=== PATIENT | female | born 1940 | race Caucasian/White ===

== ENCOUNTER 2016-08-11 16:51 | Inpatient (IN) ==
[2016-08-11] MEDS: *HR* Heparin 5,000 UNIT/ML VIAL SQ SCH (19:59)
[2016-08-12] MEDS: *HR* HYDROcodone/Acet 5/325 mg TABLET PO PRN ×3 (03:41→21:08)
[2016-08-12] MEDS: *HR* Heparin 5,000 UNIT/ML VIAL SQ SCH ×2 (06:21→17:51)
[2016-08-12] MEDS ORDERED: Aspirin 81 MG TAB.CHEW PO SCH (09:00)
[2016-08-12] MEDS ORDERED: Furosemide 40 MG TABLET PO SCH (09:00)
[2016-08-12] MEDS: Metoprolol XL (24 HR) Succ 50 MG TAB.ER.24H PO SCH (09:20)
[2016-08-12] MEDS: *HR* LORazepam 1 MG TABLET PO PRN (09:21)
[2016-08-12] MEDS: NIFEdipine XL (24 HR) 30 MG TAB.ER.24 PO SCH (09:21)
--- NOTE | 2016-08-12 11:46 | Internal Med History&Physical ---
Date of Encounter: 08/12/16 Time of Encounter: 11:10 Assessment and Plan (1) Hip fracture Current visit: No Status: Acute Status post hemiarthroplasty. Continue PT and OT intervention Qualifiers: Encounter type: initial encounter Fracture type: closed Laterality: right Qualified Code(s): S72.001A - Fracture of unspecified part of neck of right femur, initial encounter for closed fracture (2) Anemia Current visit: No Status: Chronic We will order anemia testing in a.m. Qualifiers: Anemia type: iron deficiency Iron deficiency anemia type: other iron deficiency Qualified Code(s): D50.8 - Other iron deficiency anemias (3) Hypertension Current visit: No Status: Chronic Continue clonidine, metoprolol, and nifedipine. We will hold Lasix, Cozaar and HCTZ to see if azotemia improves. Qualifiers: Hypertension type: essential hypertension Qualified Code(s): I10 - Essential (primary) hypertension (4) Chronic renal disease, stage 4, severely decreased glomerular filtration rate (GFR) between 15-29 mL/min/1.73 square meter Current visit: No Status: Chronic We will adjust medications as above and monitor renal indices. (5) Gout Current visit: Yes Status: Chronic We will check uric acid level in a.m. Qualifiers: Gout site: unspecified site Gout etiology: unspecified cause Chronicity: chronic Presence of tophus: without tophus Qualified Code(s): M1A.9XX0 - Chronic gout, unspecified, without tophus (tophi) Internal Medicine - H&P: HPI Chief complaint: Right hemiarthroplasty Admitted From: Hospital to Hospital Transfer Plans for Post Hospital Care: Home History of present illness: Ms. Caballero is a 75 year old female who was hospitalized at [facility] August 06 after sustaining a right hip fracture from a fall. She had right hemiarthroplasty done by . Her postop course was generally unremarkable and she was admitted to [facility] swing bed for rehabilitation therapy prior to returning home. Her orthopedic history is significant for previous right foot fracture surgery approximately 2009. She has DJD and gout. Past Med Surg Social Fam HX - Past Medical History Medical history: arthritis, GERD, hyperlipidemia, hypertension, renal disease Psychiatric history: anxiety - Past Surgical History Surgical History: angioplasty/stent, appendectomy, , hysterectomy, other - Social History Smoking Status: Light tobacco smoker Smokeless Tobacco Status: No Alcohol use: rarely Drug use: none - Family History Son Adopted: No Family Member Ethnicity: Non- Living Status: Still Living Hx Family Cardiac Disorders: Yes Hx Family Respiratory Disorders: No Hx Family Cancer: No Hx Family GI Disorders: No Hx Family Genitourinary Disorders: No Hx Family Endocrine Disorder: No Hx Family Musculoskeletal Disorders: No Hx Family Neuromuscular Disorders: No Hx Family Neurologic Disorders: No Hx Family HEENT Disorders: No Hx Family Autoimmune Disorders: No Hx Family Reproductive Disorders: No Hx Family Psychosocial Disorders: No Hx Family Medical Disorders: No Brother History Unknown: Yes Adopted: [place]: Mariano Living Status: Father Hx Family Cardiac Disorders: Yes (heart attack, open heart surgery) Internal Medicine - H&P: Meds Clopidogrel [Plavix] 75 mg PO DAILY 05/21/15 [History] Furosemide [Lasix] 40 mg PO DAILY 05/21/15 [History] LORazepam [Ativan] 1 mg PO TID PRN 05/21/15 [History] Losartan [Cozaar] 100 mg PO DAILY 05/21/15 [History] Metoprolol XL (24 HR) Succ [Toprol Xl] 100 mg PO DAILY 05/21/15 [History] Simvastatin [Zocor] 20 mg PO HS 05/21/15 [History] Potassium Chloride 20 meq PO DAILY #30 tab.er.prt 05/22/15 [Rx] Allopurinol [Zyloprim 100 MG] 100 mg PO DAILY 08/06/16 [History] Aspirin 81 mg PO DAILY 08/06/16 [History] CloNIDine HCl [Clonidine HCl] 0.3 mg PO TID 08/06/16 [History] HYDROcodone/Acet 5/325 mg [[place] 5-325 mg] 1 tab PO Q6H PRN 08/06/16 [History] Hydrochlorothiazide 25 mg PO DAILY 08/06/16 [History] NIFEdipine [Nifedipine ER] 60 mg PO DAILY 08/06/16 [History] Polyethylene Glycol 3350 [MiraLAX Powder Bulk 17.9 Oz] 17 gm PO DAILY PRN [History] Ferrous Sulfate 325 mg PO BIDWM #28 tablet 08/11/16 [Rx] Heparin 5,000 unit SQ Q12HR 35 Days 08/11/16 [Rx] Allergies No Known Allergies Allergy (Verified 05/16/15 11:05) All Systems PM: A 10-system review of systems was performed and is negative for pertinent findings except as documented above in the HPI. Review of systems: Gen.: She states her weight has been stable the past few months Cardiovascular: She has history of hypertension but denies SD heart failure angina DVT or pulmonary embolus Respiratory: She is a lifelong nonsmoker and has no known chronic lung disease GI: She denies disorders of her liver gallbladder or exocrine pancreas : She has chronic kidney disease but does not follow with a locker room manager. She was diagnosed approximately 2008. She had a left renal artery stent placed approximately November 2010 for renal artery stenosis. She denies other kidney or bladder disorders. Neurologic: She had 2 seizures during many years ago. She has had no recurrent seizures and denies large distribution strokes Endocrine: She has hyperlipidemia but denies diabetes or thyroid disease Hematology/oncology: She has history of anemia but denies internal malignancies or other blood disorders Psychiatric: She has occasional feelings of anxiety but denies significant depression or other mental health issues Musk skeletal: As per history of present illness - Constitutional Vitals: Temp Pulse Resp BP Pulse Ox 98.2 F 64 16 138/64 96 08/12/16 11:30 08/12/16 11:30 08/12/16 11:30 08/12/16 11:30 08/12/16 11:30 Exam: Gen.: She is a well-developed lean female who appears in no severe distress at present time HEENT: Head is atraumatic and normocephalic. Eyes: EOMI. There is no scleral icterus. Mouth: Mucosa is moist. Neck: Supple and nontender. There is no thyromegaly or adenopathy noted. Heart: Regular without murmurs gallops or ectopics. Lungs: No wheezes or crackles are heard. Abdomen: Soft and nontender. Exam is limited because she is in the seated position. Extremities: She has DJD changes of her hands. There is no cyanosis of her fingernails. There is no lower leg or dorsum of the foot edema Neurologic: Mental status: She is talkative and a good historian. Cranial nerves: Smile is symmetric. Forehead wrinkles bilaterally. Tongue protrudes midline. EOMI. Motor: There is no pronator drift. Cerebellar: Finger to nose is intact bilaterally. Skin: Warm and dry
[2016-08-12] MEDS ORDERED: *HR* Heparin 5,000 UNIT/ML VIAL SQ SCH (17:04)
[2016-08-13 05:37] LABS: Basophils # 0.1 K/mcL (0.0-0.2); Basophils % 0.6 %; Eosinophils # 0.3 K/mcL (0.0-0.6); Eosinophils % 3.6 %; Hematocrit 31.2 % (35.3-44.9); Hemoglobin 10.5 g/dL (11.5-15.4); Immature Granulocytes % 1.9 % (0-4); Lymphocytes # 1.1 K/mcL (0.6-4.6); Lymphocytes % 13.8 %; Mean Corpuscular HGB Conc 33.7 g/dL (31.6-35.5); Mean Corpuscular Hemoglobin 30.9 pg (28.0-33.3); Mean Corpuscular Volume 91.8 fL (83.0-100.0); Mean Platelet Volume 9.8 fL (9.4-12.4); Monocytes % 11.7 %; Neutrophils # 5.6 K/mcL (1.6-8.9); Platelet Count 243 K/mcL (140-400); Segmented Neutrophils % 68.4 %
[2016-08-13 05:55] LABS: Albumin 2.4 g/dL (3.5-5.0); Albumin/Globulin Ratio 0.7 (1.1-2.2); Bilirubin,Total 0.4 mg/dL (0.2-1.2); Globulin 3.5 g/dL (2.4-3.5); Magnesium 1.8 mg/dL (1.6-2.6); Potassium 4.5 mEq/L (3.5-4.5); Total Protein 5.9 g/dL (6.0-8.3); Uric Acid 6.9 mg/dL (2.6-6.0)
[2016-08-13] MEDS: *HR* Heparin 5,000 UNIT/ML VIAL SQ SCH ×2 (06:48→17:41)
[2016-08-13] MEDS: Metoprolol XL (24 HR) Succ 50 MG TAB.ER.24H PO SCH (08:35)
[2016-08-13] MEDS: NIFEdipine XL (24 HR) 30 MG TAB.ER.24 PO SCH (08:36)
[2016-08-13] MEDS: *HR* HYDROcodone/Acet 5/325 mg TABLET PO PRN ×2 (08:40→20:58)
[2016-08-13 11:24] LABS: Folate 10.2 ng/mL (7.0-31.4)
--- NOTE | 2016-08-13 17:46 | Internal Med Progress Note ---
Date of Encounter: 08/13/16 Time of Encounter: 17:35 - Assessment and plan (1) Hip fracture Current Visit: No Status: Acute Assessment and plan: August 13. Status post hemiarthroplasty. Continue PT and OT intervention. Anticipate discharge home August 15. Qualifiers: Encounter type: initial encounter Fracture type: closed Laterality: right Qualified Code(s): S72.001A - Fracture of unspecified part of neck of right femur, initial encounter for closed fracture (2) Anemia Current Visit: No Status: Chronic Assessment and plan: August 13. Anemia testing shows no factor deficiency. Qualifiers: Anemia type: iron deficiency Iron deficiency anemia type: other iron deficiency Qualified Code(s): D50.8 - Other iron deficiency anemias (3) Hypertension Current Visit: No Status: Chronic Assessment and plan: August 13. Continue clonidine, metoprolol, and nifedipine. Continue to hold Lasix, Cozaar, and HCTZ. Will recheck labs before discharge. Qualifiers: Hypertension type: essential hypertension Qualified Code(s): I10 - Essential (primary) hypertension (4) Chronic renal disease, stage 4, severely decreased glomerular filtration rate (GFR) between 15-29 mL/min/1.73 square meter Current Visit: No Status: Chronic Assessment and plan: August 13. Continue to monitor renal indices (5) Gout Current Visit: Yes Status: Chronic Assessment and plan: August 13. Uric acid level return slightly elevated at 6.9. We will leave of diuretics and increase dose of allopurinol. Qualifiers: Gout site: unspecified site Gout etiology: unspecified cause Chronicity: chronic Presence of tophus: without tophus Qualified Code(s): M1A.9XX0 - Chronic gout, unspecified, without tophus (tophi) - Subjective Interval history: August 13. She has no new complaints and feels well. - Constitutional Vitals: Temp Pulse Resp BP Pulse Ox 97.8 F 92 16 169/84 96 08/13/16 07:15 08/13/16 11:11 08/13/16 11:11 08/13/16 11:11 08/13/16 11:11 Exam: She is resting comfortably in bed appears in no acute distress. Heart is regular without murmurs gallops or ectopics. Lungs are clear. Extremities show no edema. I reviewed her medications and lab results. Internal Medicine: Result - Labs CBC & Chem 7: 08/13/16 05:28 08/13/16 05:28 Labs: Short CBC 08/13/16 Range/Units 05:28 WBC 8.3 (4.3-11.1) K/mcL Hgb 10.5 L (11.5-15.4) g/dL Hct 31.2 L (35.3-44.9) % Plt Count 243 (140-400) K/mcL Neutrophils # 5.6 (1.6-8.9) K/mcL BMP 08/13/16 05:28 Sodium 141 Potassium 4.5 Chloride 108 Carbon Dioxide 21 BUN 84 H Creatinine 2.23 H Glucose 98 Calcium 9.0 Liver Function 08/13/16 Range/Units 05:28 Total Bilirubin 0.4 (0.2-1.2) mg/dL AST 42 H (5-34) Units/L ALT 12 (0-55) Units/L Alkaline Phosphatase 80 (38-126) Units/L Albumin 2.4 L (3.5-5.0) g/dL Consult Discharge Plan - Plan Referrals: Shaun Feliciano Jr, MD [Primary Care Provider] - 1 week
[2016-08-14] MEDS: *HR* HYDROcodone/Acet 5/325 mg TABLET PO PRN ×3 (03:39→20:17)
[2016-08-14] MEDS: *HR* Heparin 5,000 UNIT/ML VIAL SQ SCH ×2 (06:41→16:50)
[2016-08-14] MEDS: Metoprolol XL (24 HR) Succ 50 MG TAB.ER.24H PO SCH (07:48)
[2016-08-14] MEDS: NIFEdipine XL (24 HR) 30 MG TAB.ER.24 PO SCH (07:49)
[2016-08-14] MEDS ORDERED: Aspirin 81 MG TAB.CHEW PO SCH (09:00)
[2016-08-15 06:19] VITALS: BP 136/73
[2016-08-15] MEDS: *HR* Heparin 5,000 UNIT/ML VIAL SQ SCH (06:19)
--- NOTE | 2016-08-15 10:13 | Discharge Summary ---
Date of Encounter: 08/15/16 Time of Encounter: 10:00 - Discharge Diagnosis (1) Hip fracture Priority: Primary Status: Acute Qualifiers: Encounter type: initial encounter Fracture type: closed Laterality: right Qualified Code(s): S72.001A - Fracture of unspecified part of neck of right femur, initial encounter for closed fracture (2) Anemia Priority: Secondary Status: Chronic Qualifiers: Anemia type: unspecified type Qualified Code(s): D64.9 - Anemia, unspecified (3) Hypertension Priority: Secondary Status: Chronic Qualifiers: Hypertension type: essential hypertension Qualified Code(s): I10 - Essential (primary) hypertension (4) Chronic renal disease, stage 4, severely decreased glomerular filtration rate (GFR) between 15-29 mL/min/1.73 square meter Priority: Secondary Status: Chronic (5) Gout Priority: Secondary Status: Chronic Qualifiers: Gout site: unspecified site Gout etiology: unspecified cause Chronicity: chronic Presence of tophus: without tophus Qualified Code(s): M1A.9XX0 - Chronic gout, unspecified, without tophus (tophi) - Discharge Medications Home Medications: Clopidogrel [Plavix] 75 mg PO DAILY 05/21/15 [History] LORazepam [Ativan] 1 mg PO TID PRN 05/21/15 [History] Metoprolol XL (24 HR) Succ [Toprol Xl] 100 mg PO DAILY 05/21/15 [History] Simvastatin [Zocor] 20 mg PO HS 05/21/15 [History] Aspirin 81 mg PO DAILY 08/06/16 [History] CloNIDine HCl [Clonidine HCl] 0.3 mg PO TID 08/06/16 [History] HYDROcodone/Acet 5/325 mg [[place] 5-325 mg] 1 tab PO Q6H PRN 08/06/16 [History] NIFEdipine [Nifedipine ER] 60 mg PO DAILY 08/06/16 [History] Polyethylene Glycol 3350 [MiraLAX Powder Bulk 17.9 Oz] 17 gm PO DAILY PRN [History] Ferrous Sulfate 325 mg PO BIDWM #28 tablet 08/11/16 [Rx] Heparin 5,000 unit SQ Q12HR 35 Days 08/11/16 [Rx] Allopurinol [Zyloprim 100 MG] 200 mg PO DAILY #0 02/03/17 [Rx] Allergies/Adverse Reactions: Allergies No Known Allergies Allergy (Verified 05/16/15 11:05) Date of admission: 08/11/16 16:52 Primary care physician: Shaun Feliciano Jr, MD Consults: 08/11/16 17:00 Consult to Occupational Therapy [CONS] Routine Comment: evaluate, develop, and implement plan of care Consult to Physical Therapy [CONS] Routine Comment: evaluate, develop, and implement plan of care Consult to Aircraft Layout Worker [CONS] Routine Reason for SW Consult: discharge planning - Patient Status Disposition: Home, Self-Care Overall status at discharge: patient is progressing back to baseline - Discharge Instructions Follow Up With: Shaun Feliciano Jr, MD [Primary Care Provider] - 1 week - Diet and Activity Activity: resume usual activities as tolerated Diet: advance to your usual diet Hospital course: Ms. Caballero is a 75 year old female who was hospitalized at [facility] August 06 after sustaining a right hip fracture from a fall. She had right hemiarthroplasty done by . Her postop course was generally unremarkable and she was admitted to [facility] swing bed for rehabilitation therapy prior to returning home. Initial orders were written by the discharging physicians at [facility]. I saw her on August 12 and performed a history and physical. She had physical therapy and occupational therapy evaluations and ongoing interventions. She made satisfactory progress and did not complain of severe pain. Anemia testing was ordered and showed folate 10.2, B12 417, transferrin saturation 23 %, and iron 45. Her Cozaar, hydrochlorothiazide, and Lasix were held during hospitalization to see if her renal function would improve. Her blood pressure remained generally satisfactory without these. Dr. Feliciano can order follow-up labs and adjust medications as needed. Uric acid level returned elevated at 6.9. Her allopurinol dose was increased to 200 mg daily. I felt discontinuing her HCTZ might result in uric acid lowering also. On August 15 she felt stable for discharge home. She will follow Dr. Feliciano within 1 week and follow with Dr. Miguel's office as directed. - Time Spent with Patient Total time spent providing and/or coordinating discharge services: - Constitutional Vitals: Temp Pulse Resp BP Pulse Ox 98.2 F 78 16 136/73 97 08/15/16 06:17 08/15/16 06:17 08/15/16 06:17 08/15/16 06:17 08/15/16 06:17
--- NOTE | 2016-08-15 11:05 | Physician Discharge Referral ---
Home Health/Hosp Referral Info Transfer to: Home Health Attending Provider: Gabe Provider in Charge Post Discharge: PCP - Diagnosis (1) Hip fracture Priority: Primary Status: Acute (2) Anemia Priority: Secondary Status: Chronic (3) Hypertension Priority: Secondary Status: Chronic (4) Chronic renal disease, stage 4, severely decreased glomerular filtration rate (GFR) between 15-29 mL/min/1.73 square meter Priority: Secondary Status: Chronic (5) Gout Priority: Secondary Status: Chronic - Respiratory Orders Smoking Cessation: Smoking cessation has been advised. For more information, call the [place] Tobacco Quit Line at 7-101-DAEO-NOW. - Diet/Nutrition Diet/Nutrition Orders: Regular - Activity Activity Orders: Ambulate - Services Needed Following services are medically necessary services: Nursing, Home Health Aide, Physical Therapy, Occupational Therapy - Transfer Medications Home Medications: Clopidogrel [Plavix] 75 mg PO DAILY 05/21/15 [History] LORazepam [Ativan] 1 mg PO TID PRN 05/21/15 [History] Metoprolol XL (24 HR) Succ [Toprol Xl] 100 mg PO DAILY 05/21/15 [History] Simvastatin [Zocor] 20 mg PO HS 05/21/15 [History] Aspirin 81 mg PO DAILY 08/06/16 [History] CloNIDine HCl [Clonidine HCl] 0.3 mg PO TID 08/06/16 [History] HYDROcodone/Acet 5/325 mg [[place] 5-325 mg] 1 tab PO Q6H PRN 08/06/16 [History] NIFEdipine [Nifedipine ER] 60 mg PO DAILY 08/06/16 [History] Polyethylene Glycol 3350 [MiraLAX Powder Bulk 17.9 Oz] 17 gm PO DAILY PRN [History] Ferrous Sulfate 325 mg PO BIDWM #28 tablet 08/11/16 [Rx] Heparin 5,000 unit SQ Q12HR 35 Days 08/11/16 [Rx] Allopurinol [Zyloprim 100 MG] 200 mg PO DAILY #0 08/15/16 [Rx] Allergies/Adverse Reactions: Allergies No Known Allergies Allergy (Verified 05/16/15 11:05) Certification: Further, I certify that my clinical findings support that this patient is homebound (i.e. absences from home require considerable and taxing effort and are for medical reasons or jew services or infrequently or short duration when for other reasons) because: Homebound Reason: Leaving home requires considerable and taxing effort due to condition (Recent hip fracture with surgery, deconditioned) Attestation: My signature below is to certify that this patient is under my care and that I, or nurse practitioner, or a physician's broker assistant working with me, has a face-to -face encounter with this patient.
[2016-08-15] MEDS: Metoprolol XL (24 HR) Succ 50 MG TAB.ER.24H PO SCH (11:15)
[2016-08-15] MEDS: *HR* LORazepam 1 MG TABLET PO PRN (11:17)
[2016-08-15] MEDS: NIFEdipine XL (24 HR) 30 MG TAB.ER.24 PO SCH (11:17)
[2016-08-15] MEDS: *HR* HYDROcodone/Acet 5/325 mg TABLET PO PRN (11:18)
== END 2016-08-15 13:20 | disposition home or self-care (01) | DRG 560 ==
LOC: INPPIK 16:52
PROVIDERS: ADMIT Internal Medicine; ATTEND Internal Medicine